=== PATIENT | male | born 1980 | race Caucasian/White ===

== ENCOUNTER 2023-04-29 01:00 | Emergency (ER) | payer BC, OTHER ==
[2023-04-29] MEDS ORDERED: FLUORESCEIN STRIPS 1 MG STRIP RIGHT EYE ONE (01:33)
[2023-04-29] MEDS ORDERED: PROPARACAINE 0.5% OPHTH DROPS 15 ML BTL RIGHT EYE STA (01:34)
[2023-04-29] MEDS ORDERED: PROPARACAINE 0.5% OPHTH DROPS 15 ML BTL RIGHT EYE SCH (01:45)
[2023-04-29 01:50] VITALS: BP 146/93; PULSE 76; RESP 18; TEMP 97.9
[2023-04-29] MEDS ORDERED: TOBRAMYCIN 0.3% OPHTH DROPS 5 ML BTL RIGHT EYE STA (01:52)
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
== END 2023-04-29 02:21 | disposition home or self-care (01) ==
LOC: EC 01:00
DX: S05.01XA Injury of conjunctiva and corneal abrasion without foreign body, right eye, initial encounter (principal); K21.9 Gastro-esophageal reflux disease without esophagitis; I10 Essential (primary) hypertension; Z88.5 Allergy status to narcotic agent; Z79.899 Other long term (current) drug therapy; W45.8XXA Other foreign body or object entering through skin, initial encounter; Y93.H2 Activity, gardening and landscaping; Y92.009 Unspecified place in unspecified non-institutional (private) residence as the place of occurrence of the external cause
CPT/HCPCS: 99282